=== PATIENT | male | born 1995 | race Two or more races ===

== ENCOUNTER 2019-03-22 23:32 | Emergency (ER) | payer OTHER ==
--- NOTE | 2019-03-22 23:41 | ED PDOC ---
Arrival/HPI - General Historian: Patient - History of Present Illness Narrative History of Present Illness (Text): 03/22/19 23:41 24 y/o male, no significant pmh, nkda, c/o lt. upper molar pain x 1 month. on and off, aching pain, aggravated by biting, scheduled to see the dentist next week, no facial swelling, no night sweat, no rash, no dizziness, no difficulty eating or drinking, no other medical or psychological complaints. Past Medical History - Provider Review Nursing Documentation Reviewed: Yes Family/Social History - Physician Review Nursing Documentation Reviewed: Yes Family/Social History: Unknown Family HX Allergies/Home Meds Allergies/Adverse Reactions: Allergies No Known Allergies Allergy (Verified 03/22/19 23:41) Review of Systems - Review of Systems Constitutional: absent: Fatigue, Fevers Eyes: absent: Vision Changes ENT: Other (dental pain). absent: Hearing Changes Respiratory: absent: SOB, Cough Cardiovascular: absent: Chest Pain Gastrointestinal: absent: Abdominal Pain, Diarrhea, Nausea, Vomiting Musculoskeletal: absent: Arthralgias, Back Pain Skin: absent: Rash, Pruritis Neurological: absent: Headache, Dizziness Psychiatric: absent: Anxiety, Depression, Suicidal Ideation Physical Exam Vital Signs Reviewed: Yes Temperature: Afebrile Blood Pressure: Normal Pulse: Regular Respiratory Rate: Normal Appearance: Positive for: Well-Appearing, Non-Toxic Pain Distress: Severe Mental Status: Positive for: Alert and Oriented X 3 - Systems Exam Head: Present: Atraumatic, Normocephalic Pupils: Present: PERRL Extroacular Muscles: Present: EOMI Conjunctiva: Present: Normal Mouth: Present: Moist Mucous Membranes, Normal Lips, Normal Tounge, Other (Lt. upper molar cracked with dental caries, no gingival abscess or gingivitis, no facial swelling or regional lymphenapathy). No: Drooling, Trismus Nose (External): Present: Atraumatic. No: Abrasion, Contusion, Laceration Nose (Internal): Present: Normal Inspection, No Active Bleeding. No: Rhinorrh ea, Septal Hematoma, Epistaxis Neck: Present: Normal Range of Motion Respiratory/Chest: Present: Clear to Auscultation, Good Air Exchange. No: Respiratory Distress, Accessory Muscle Use Cardiovascular: Present: Regular Rate and Rhythm, Normal S1, S2. No: Murmurs Abdomen: No: Tenderness, Distention, Peritoneal Signs Back: Present: Normal Inspection Upper Extremity: Present: Normal Inspection. No: Cyanosis, Edema Lower Extremity: Present: Normal Inspection. No: Edema Neurological: Present: GCS=15, CN II-XII Intact, Speech Normal Skin: Present: Warm, Dry, Normal Color. No: Rashes Psychiatric: Present: Alert, Oriented x 3, Normal Insight, Normal Concentration Medical Decision Making ED Course and Treatment: 03/22/19 23:55 -amoxicillin/motrin and percocet 03/23/19 00:12 -Pain resolved, feeling much better. -Discharge home with amoxicillin, percocet, motrin, soft food diet, follow up with your own pmd and dentist within 2 days, return to the ER for any new or worsening signs or symptoms. - PA / MUSIC SUPERVISOR / Resident Statement MD/DO has reviewed & agrees with the documentation as recorded. Disposition/Present on Arrival - Present on Arrival Any Indicators Present on Arrival: No History of DVT/PE: No History of Uncontrolled Diabetes: No Urinary Catheter: No History of Decub. Ulcer: No - Disposition Have Diagnosis and Disposition been Completed?: Yes Diagnosis: Dental caries, Pain, dental Disposition: HOME/ ROUTINE Disposition Time: 23:41 Patient Plan: Discharge Condition: IMPROVED Additional Instructions: Discharge home with amoxicillin, percocet, motrin, soft food diet, follow up with your own pmd and dentist within 2 days, return to the ER for any new or worsening signs or symptoms. Prescriptions: Amoxicillin 875 mg PO BID #20 tab Ibuprofen [Motrin Tab] 600 mg PO QID PRN #30 tab PRN Reason: Other oxyCODONE/Acetaminophen [Percocet 5/325 mg Tab] 1 tab PO QID PRN #10 tab PRN Reason: Other Referrals: [facility] [Outside] - Follow up with primary Forms: WORK NOTE
[2019-03-22 23:43] VITALS: BP 116/72; PULSE 64; RESP 17; TEMP 98.7; O2SAT 99
[2019-03-22] MEDS ORDERED: Oxycodone/Acetaminophen 5/325 mg Tab PO STA (23:45)
== END 2019-03-23 00:25 | disposition home or self-care (01) ==
LOC: ED 23:32
DX: K02.9 Dental caries, unspecified (principal)